=== PATIENT | female | born 1990 | race Caucasian/White ===

== ENCOUNTER 2024-05-13 21:46 | Inpatient (IN) | payer OTHER, SELFPAY ==
[2024-05-13 23:37] LABS: Alanine Aminotransferase 24 U/L (0-31); Albumin Level 4.1 g/dL (3.5-5.0); Alkaline Phosphatase 48 U/L (39-117); Anion Gap 11 (12-20); Aspartate Amino Transferase 20 U/L (5-31); Bilirubin Total 0.4 mg/dL (0.0-1.0); Blood Urea Nitrogen 8 mg/dL (9-16); Calcium 9.3 mg/dL (8.4-10.2); Carbon Dioxide 26 mmol/L (22-29); Chloride 109 mmol/L (96-108); Estimated Glomerular Filt Rate > 60; Glucose Random 109 mg/dL (60-115); Potassium 4.4 mmol/L (3.3-5.1); Sodium 142 mmol/L (135-145); Total Protein 7.7 g/dL (6.5-8.0)
--- NOTE | 2024-05-14 02:41 | PC.ADMIT ---
Patient is a 34 year old female admitted as a CV admission to at 2205 05/13/24. She was medically cleared at [facility] ED where she presented for evaluation of SI and a left wrist laceration. According to the intake patient has a history of self injurious behavior via cutting. During the admission process, the patient told this advertising copywriter that she was not trying to kill herself but was very angry and frustrated with her long time significant other. She feels her SO is cheating on her and became so upset she cut herself with a knife. The laceration required stitches. Patient said she has no previous psychiatric hospitalizations and has no medication prescriber or therapist. During admission process patient said she has tried to obtain a PCP but has had no one call her back or she is told the provider is not taking any new patients. Patient was cooperative with skin check, which was unremarkable except for her left wrist laceration that is covered with a CDI dressing. She said she was mostly angry with her significant other and did not rate her anxiety or depression. Patient cooperative during the admission process and signed legals. Treatment plan, safety tool and belongings sheet need to be signed. Patient will be a 1:[address] Pabon, due to her history of cutting and her current laceration. No medical issues, no current meds.
[2024-05-14 03:31] VITALS: BMI 34.7
[2024-05-14 08:00] VITALS: RESP 18
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
[2024-05-14 09:35] LABS: Cholesterol 138 mg/dL (<200); HDL Cholesterol 48 mg/dL (>40); LDL Cholesterol Calculated 73 mg/dL (<100); Triglycerides 89 mg/dL (<150)
--- NOTE | 2024-05-14 11:21 | P.CONHOSP_ITS ---
History of Present Illness Data of Consult Service Date: 05/14/24 Primary Care Provider: Unknown Physician HPI Reason for consult: Admission H&P Pt is a 34-year-old female without any reported significant PMH who is admitted to M5 psychiatry unit. Medical consult for admission H&P. Patient seen and examined in her room where she is tearful but cooperative. Patient denies any chronic medical conditions or surgical history. Not on home medications. Denies any acute medical complaints. No headache or acute vision changes. Denies fever, chills, nausea, vomiting, abdominal pain. No diarrhea. Denies chest pain/pressure, palpitations. No shortness a breath or difficulty breathing. Labs reviewed, grossly unremarkable. Review of Systems 2 Review of Systems: The patient has no acute medical complaints PMFSH Social History Household Members: Significant Other Housing: Apartment Do you presently have visiting nurse or other home services: No Patient Tobacco Use Status: Current everyday Tobacco user Tobacco use type: Cigarette Smoked in Last 30 Days: Yes e-Cigarette/Vaping Use: Currently Using Frequency of e-Cigarette/Vaping Use: All day Patient Interested in Nicotine Replacement: Yes Patient Given Instructions on How to Stop Smoking: Yes Date Education Initiated: 05/13/24 Second Hand Smoke Exposure: Yes Use of substances other than those prescribed or required for medical reasons: Yes Substance Use Type: Caffiene Substance Use Frequency: Daily Last Used Substance: Unknown Currently Displaying Signs/Symptoms of Drug Intoxication Withdrawal: No Have you been hit, kicked, punched, or otherwise hurt by someone within the past year? If so, by whom?: No Do you feel safe in your current relationship?: Yes Is there a partner from a previous relationship who is making you feel unsafe now?: No Are you made to feel afraid or neglected: No Advance Directives: No Advance Directives Information Provided: No Do you have a plan to hurt others: No Plan Recently lost weight without trying: No Nutrition Risks: No Nutritional Risk Patient : No : No Poor oral hygiene: No Meds Allergies Allergy/AdvReac Type Severity Reaction Status Date / Time No Known Allergies Allergy Verified 05/13/24 22:33 Active Medications: Current Medications Acetaminophen (Acetaminophen 325 Mg Tablet) 650 mg PO Q6H PRN PRN Reason: Headache/Pain Mild Scale (1-3) Al Hydroxide/Mg Hydroxide (Magnesium Hydrox/Alum Hydrox 30 Ml Oral.Susp) 30 ml PO Q6H PRN PRN Reason: Heartburn/Nausea Hydroxyzine HCl (Hydroxyzine Hcl 25 Mg Tablet) 25 mg PO Q6H PRN PRN Reason: Anxiety Magnesium Hydroxide (Milk Of Magnesia 30 Ml Oral.Susp) 30 ml PO DAILY PRN PRN Reason: Constipation Nicotine Polacrilex (Nicotine Polacrilex 2 Mg Gum) 4 mg BUCCAL Q2H PRN PRN Reason: Nicotine Cravings Trazodone HCl (Trazodone Hcl 50 Mg Tablet) 50 mg PO BEDTIME MRX1 PRN PRN Reason: Insomnia Physical Exam 2 Vital Signs and Narrative: Vital Signs: BMI result Body Mass Index 34.7 General: AOx3, no acute distress Resp: CTA bilaterally CVS: S1, S2, RRR GI: +BS, NT, no distention Skin: Warm, dry Neuro: Cranial nerves II-XII grossly intact bilaterally. Motor grossly intact bilaterally Extremities: No edema Psych: Tearful with flat affect Results Labs 05/13/24 23:08 Labs: Laboratory Results - last 24 hr 05/13/24 05/14/24 23:08 08:03 Hold Purple Top SEE NOTE Anion Gap 11 L Estim Creat Clear Calc TNP Estimated GFR > 60 Random Glucose 109 Calcium 9.3 Total Bilirubin 0.4 AST 20 ALT 24 Alkaline Phosphatase 48 Total Protein 7.7 Albumin 4.1 Triglycerides 89 Cholesterol 138 LDL Cholesterol, Calc 73 HDL Cholesterol 48 Assessment and Plan (1) Medical clearance for psychiatric admission: Status: Acute Plan Pt is a 34-year-old female without any reported significant PMH who is admitted to [facility]5 psychiatry unit. Medical consult for admission H&P. Patient seen and examined in her room where she is tearful but cooperative. Patient denies any chronic medical conditions or surgical history. Not on home medications. Denies any acute medical complaints. Mood disorder Plan as per Psychiatry Patient otherwise has no known chronic medical conditions or acute medical complaints at this time. Will sign off for now. Thank you for allowing us to participate in the care of this patient. Please re-consult if any acute issue or need arises.
[2024-05-14 19:47] VITALS: BP 112/68; PULSE 83; RESP 15; TEMP 36.6; O2SAT 97
[2024-05-15 09:25] VITALS: BP 124/68; PULSE 72; RESP 18; TEMP 36.9; O2SAT 98
[2024-05-15] MEDS: Nicotine Polacrilex 2 MG GUM 4 MG BUCCAL ×2 (11:02→17:52)
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
[2024-05-15 20:00] VITALS: BP 120/65; PULSE 78; RESP 15; O2SAT 97
[2024-05-15] MEDS: Magnesium Hydrox/Alum Hydrox 30 ML ORAL.SUSP PO (20:27)
[2024-05-16 08:00] VITALS: BP 123/81; PULSE 84; RESP 18; TEMP 36.8; O2SAT 98
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
[2024-05-16 20:00] VITALS: BP 135/70; PULSE 88; TEMP 36.4; O2SAT 99
[2024-05-17 08:00] VITALS: BP 120/64; PULSE 75; RESP 16; TEMP 36.9; O2SAT 99
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
== END 2024-05-17 12:27 | disposition home or self-care (01) | DRG 755 ==
PROVIDERS: Admitting Provider Psychiatry & Neurology Psychiatry; Visit Provider Psychiatry & Neurology Psychiatry
DX: F43.25 Adjustment disorder with mixed disturbance of emotions and conduct (principal); F17.210 Nicotine dependence, cigarettes, uncomplicated; Z71.6 Tobacco abuse counseling
CPT/HCPCS: 36415; 80053; 80061

== ENCOUNTER → 2024-05-13 21:46 | Outpatient (BNV) | payer OTHER, SELFPAY | PROVIDERS: Admitting Provider Psychiatry & Neurology Psychiatry; Visit Provider Psychiatry & Neurology Psychiatry | DX: F43.25 Adjustment disorder with mixed disturbance of emotions and conduct (principal) | CPT/HCPCS: 99231; 99232 ==

== ENCOUNTER → 2024-05-13 21:46 | Outpatient (BNV) | payer OTHER, SELFPAY | PROVIDERS: Admitting Provider Psychiatry & Neurology Psychiatry; Visit Provider Student in an Organized Health Care Education/Training Program | DX: Z02.2 Encounter for examination for admission to residential institution (principal) | CPT/HCPCS: 99429 ==